=== PATIENT | male | born 1980 | race Caucasian/White ===

== ENCOUNTER 2018-01-20 10:32 | Inpatient (IN) | payer SELFPAY ==
[~2018-01-20] VITALS: Ht 170.2 cm; Wt 67.6 kg
[2018-01-20 10:42] LABS: BASOPHILS % (AUTO) 0.6 % (0.0-5.0); HEMATOCRIT 39.6 % (42-54); LYMPHOCYTES % (AUTO) 26.2 % (21.0-51.0); MEAN CORPUSCULAR HEMOGLOBIN 30.1 pg (27.0-33.0); MEAN CORPUSCULAR VOLUME 88.6 fL (79-99); MONOCYTES % (AUTO) 7.4 % (3.0-13.0); NEUTROPHILS % (AUTO) 60.8 % (40.0-77.0); NUCLEATED RED BLOOD CELLS 0.1 % (0.0-0.19); PLATELET COUNT (AUTO) 393 K/uL (130-400); RED BLOOD CELL COUNT(AUTO) 4.47 MIL/uL (4.50-6.20); RED CELL DISTRIBUTION WIDTH 13.8 % (11.0-15.5)
[2018-01-20 10:54] LABS: CREATININE 0.9 mg/dL (0.5-1.5); POTASSIUM 3.8 mmol/L (3.5-5.1)
[2018-01-20] MEDS ORDERED: KETOROLAC TROMETHAMINE 30MG/ML ONE (11:54)
[2018-01-20] MEDS ORDERED: CEFTRIAXONE SODIUM 1 GM ONE (13:19)
[2018-01-20] MEDS ORDERED: SODIUM CHLORIDE 0.9% 50 ML IV ONE (13:19)
[2018-01-20 13:43] LABS: AMPHET/METH SCREEN,URINE NEGATIVE (NEGATIVE); BARBITURATE SCREEN, URINE NEGATIVE (NEGATIVE); BENZODIAZEPINES SCREEN,URINE NEGATIVE (NEGATIVE); CANNABINOID SCREEN,URINE NEGATIVE (NEGATIVE); COCAINE SCREEN,URINE POSITIVE (NEGATIVE); OPIATE SCREEN,URINE NEGATIVE (NEGATIVE); PHENCYCLIDINE SCREEN,URINE NEGATIVE (NEGATIVE)
[2018-01-20 15:35] VITALS: BP 95/42
[2018-01-20] MEDS ORDERED: ONDANSETRON HCL 4 MG/2 ML VIAL IV PRN (17:30)
[2018-01-20] MEDS ORDERED: IBUPROFEN 600 MG TABLET PO PRN (17:30)
[2018-01-20] MEDS ORDERED: ACETAMINOPHEN 325 MG TAB PO PRN (17:30)
[2018-01-20] MEDS ORDERED: HYDRALAZINE HCL 20 MG/ML VIAL IV PRN (17:30)
[2018-01-20] MEDS ORDERED: MORPHINE SULFATE 2 MG/ML 1ML SYG IV PRN (17:30)
[2018-01-20] MEDS: CLINDAMYCIN 600 MG/D5% WATER 50 ML IV SCH (17:50)
[2018-01-20] MEDS ORDERED: MORPHINE SULFATE 4 MG/1ML SYG ONE (19:41)
[2018-01-20] MEDS: SODIUM CHLORIDE 0.9% 1000ML 1,000 ML IV SCH (19:47)
[2018-01-20 20:00] VITALS: BP 164/96
[2018-01-20] MEDS: FAMOTIDINE/PF 20 MG/2 ML VIAL IV SCH (21:33)
[2018-01-20] MEDS: DIAZEPAM 5 MG TABLET PO SCH (21:33)
[2018-01-20] MEDS: KETOROLAC TROMETHAMINE 30MG/ML IV SCH (21:33)
[2018-01-21] VITALS: BP 90/58
[2018-01-21] MEDS: CLINDAMYCIN 600 MG/D5% WATER 50 ML IV SCH ×3 (00:30→15:15)
[2018-01-21] MEDS: KETOROLAC TROMETHAMINE 30MG/ML IV SCH ×2 (06:22→14:11)
[2018-01-21] MEDS: SODIUM CHLORIDE 0.9% 1000ML 1,000 ML IV SCH (06:23)
[2018-01-21] MEDS: DIAZEPAM 5 MG TABLET PO SCH ×2 (06:23→14:11)
[2018-01-21 06:31] VITALS: BP 144/84
[2018-01-21 07:51] VITALS: BP 117/75
[2018-01-21] MEDS ORDERED: ENOXAPARIN SODIUM 40 MG/0.4 ML SYRINGE SQ SCH (09:00)
[2018-01-21] MEDS ORDERED: NICOTINE 14 MG/ 24 HR PATCH TD SCH (09:45)
[2018-01-21] MEDS ORDERED: CLIN300C9 PO (09:48)
[2018-01-21] MEDS ORDERED: IBUP-2077 PO (09:48)
[2018-01-21] MEDS: FAMOTIDINE/PF 20 MG/2 ML VIAL IV SCH (11:10)
[2018-01-21 12:00] VITALS: BP 120/71
[2018-01-21 15:19] VITALS: BP 121/72
== END 2018-01-21 18:10 | disposition home or self-care (01) | DRG 603 ==
LOC: EDH 10:32 → EDHIP 10:33 → 3CH 15:16
PROVIDERS: ADMIT Hospitalist; ATTEND Hospitalist
DX: L03.211 Cellulitis of face (principal); K02.9 Dental caries, unspecified; F14.90 Cocaine use, unspecified, uncomplicated; F31.9 Bipolar disorder, unspecified; F20.9 Schizophrenia, unspecified
CPT/HCPCS: 36415; 70486; 70490; 80048; 80305; 85025; 87040; J0696; J1650; J1885; J2270; J3490

== ENCOUNTER 2018-06-30 11:07 | Emergency (ER) | payer SELFPAY ==
[~2018-06-30 11:07] MED LIST: CLIN300C9 PO; IBUP-2077 PO
[2018-06-30] MEDS ORDERED: TETANUS/DIPHTHERIA TOXOID [ADULT] 0.5 ML VIAL IM ONE (11:51)
== END 2018-06-30 12:03 | disposition home or self-care (01) ==
LOC: EDH 11:07
DX: S61.214A Laceration without foreign body of right ring finger without damage to nail, initial encounter (principal); F31.9 Bipolar disorder, unspecified; F20.9 Schizophrenia, unspecified; Z72.0 Tobacco use; X78.1XXA Intentional self-harm by knife, initial encounter; Y93.89 Activity, other specified; Y92.89 Other specified places as the place of occurrence of the external cause; Y99.8 Other external cause status
CPT/HCPCS: 29130; 90471; 90714

== ENCOUNTER 2019-03-10 16:40 | Inpatient (IN) | payer OTHER ==
[~2019-03-10] VITALS: Ht 170.2 cm; Wt 61.2 kg
[2019-03-10 18:02] LABS: BASOPHILS % (AUTO) 0.9 % (0.0-5.0); EOSINOPHILS % (AUTO) 4.8 % (0.0-8.0); HEMATOCRIT 28.8 % (42-54); LYMPHOCYTES % (AUTO) 24.9 % (21.0-51.0); MEAN CORPUSCULAR HEMOGLOBIN 30.4 pg (27.0-33.0); MEAN CORPUSCULAR HGB CONC 34.6 g/dL (32.0-36.0); MEAN CORPUSCULAR VOLUME 87.9 fL (79-99); MONOCYTES % (AUTO) 12.9 % (3.0-13.0); NEUTROPHILS % (AUTO) 56.5 % (40.0-77.0); PLATELET COUNT (AUTO) 340 K/uL (130-400); RED BLOOD CELL COUNT(AUTO) 3.28 MIL/uL (4.50-6.20); WHITE BLOOD COUNT (AUTO) 11.7 K/uL (4.8-10.8)
[2019-03-10] MEDS ORDERED: TETANUS/DIPHTHERIA TOXOID [ADULT] 0.5 ML VIAL IM ONE (18:06)
[2019-03-10 18:17] LABS: INR 0.99 (0.85-1.15); PROTHROMBIN TIME 10.4 SEC (9.6-11.6)
[2019-03-10 18:18] LABS: APPEARANCE,URINE Clear (CLEAR); BILIRUBIN,URINE Negative (NEGATIVE); COLOR,URINE Yellow (YELLOW); GLUCOSE, URINE (UA) Negative (NEGATIVE); KETONES,URINE Negative (NEGATIVE); LEUKOCYTE ESTERASE ,URINE Negative (NEGATIVE); NITRATE,URINE Negative (NEGATIVE); OCCULT BLOOD,URINE Negative (NEGATIVE); PH,URINE 7.5 (5.0-8.0); PROTEIN,URINE Negative (NEGATIVE); UROBILINOGEN,URINE 0.2 mg/dL (0.2-1.0)
[2019-03-10] MEDS ORDERED: ZOSYN 3.375GM+NS 50ML 50 ML IV ONE (18:21)
[2019-03-10 18:33] LABS: ACETAMINOPHEN < 1 mcg/mL (10-29); ALCOHOL, BLOOD < 3 mg/dL (0-10); SALICYLATE < 2.8 mg/dL (2.8-20.0)
[2019-03-10 18:36] LABS: CREATININE 0.7 mg/dL (0.5-1.5); POTASSIUM 4.1 mmol/L (3.5-5.1)
[2019-03-10 18:51] LABS: ALBUMIN 2.9 g/dL (3.5-5.0); BILIRUBIN,TOTAL 0.3 mg/dL (0.2-1.0); PARTIAL THROMBOPLASTIN TIME 24.9 SEC (26.3-35.5); TOTAL PROTEIN, SERUM 6.3 g/dL (6.0-8.3)
[2019-03-10 18:59] LABS: MYOGLOBIN 49 ng/mL (10-92)
[2019-03-10 19:09] LABS: AMPHET/METH SCREEN,URINE NEGATIVE (NEGATIVE); BARBITURATE SCREEN, URINE NEGATIVE (NEGATIVE); BENZODIAZEPINES SCREEN,URINE POSITIVE (NEGATIVE); CANNABINOID SCREEN,URINE NEGATIVE (NEGATIVE); COCAINE SCREEN,URINE POSITIVE (NEGATIVE); OPIATE SCREEN,URINE NEGATIVE (NEGATIVE); PHENCYCLIDINE SCREEN,URINE NEGATIVE (NEGATIVE)
[2019-03-10] MEDS ORDERED: VANCOMYCIN 1GM+NS 250ML 250 ML IV ONE (19:13)
[2019-03-10] MEDS ORDERED: ACETAMINOPHEN EXTRA STRENGTH 500 MG TABLET ONE (19:44)
[2019-03-10] MEDS ORDERED: SODIUM CHLORIDE 0.9% 1000ML 1,000 ML IV ONE (19:44)
[2019-03-10] MEDS ORDERED: FAMOTIDINE/PF 20 MG/2 ML VIAL IV ONE (20:53)
[2019-03-10 22:10] VITALS: BP 115/66
[2019-03-11] MEDS: SODIUM CHLORIDE 0.9% 1000ML 1,000 ML IV SCH ×3 (00:01→20:33)
[2019-03-11] MEDS: FAMOTIDINE/PF 20 MG/2 ML VIAL IV SCH ×3 (00:01→20:33)
[2019-03-11] MEDS ORDERED: ZOSYN 3.375GM+NS 50ML 50 ML IV ONE (00:47)
[2019-03-11] MEDS: ZOSYN 3.375GM+NS 50ML 50 ML IV SCH ×3 (01:11→17:18)
[2019-03-11 04:35] VITALS: BP 119/73
[2019-03-11 05:25] LABS: BASOPHILS % (AUTO) 0.8 % (0.0-5.0); EOSINOPHILS % (AUTO) 6.3 % (0.0-8.0); HEMATOCRIT 28.6 % (42-54); MEAN CORPUSCULAR HEMOGLOBIN 30.3 pg (27.0-33.0); MEAN CORPUSCULAR HGB CONC 34.6 g/dL (32.0-36.0); MEAN CORPUSCULAR VOLUME 87.6 fL (79-99); MONOCYTES % (AUTO) 11.1 % (3.0-13.0); NEUTROPHILS % (AUTO) 54.8 % (40.0-77.0); PLATELET COUNT (AUTO) 366 K/uL (130-400); RED BLOOD CELL COUNT(AUTO) 3.27 MIL/uL (4.50-6.20); RED CELL DISTRIBUTION WIDTH 14.1 % (11.0-15.5); WHITE BLOOD COUNT (AUTO) 9.7 K/uL (4.8-10.8)
[2019-03-11 06:24] LABS: ALBUMIN 2.5 g/dL (3.5-5.0); BILIRUBIN,TOTAL 0.3 mg/dL (0.2-1.0); CREATININE 0.9 mg/dL (0.5-1.5); MAGNESIUM 1.5 mg/dL (1.80-2.40); POTASSIUM 3.3 mmol/L (3.5-5.1); TOTAL PROTEIN, SERUM 6.4 g/dL (6.0-8.3)
[2019-03-11] MEDS ORDERED: POTASSIUM CHLORIDE 20 MEQ ERTAB PO ONE (06:43)
[2019-03-11] MEDS ORDERED: MAGNESIUM 2GM PREMIX 50ML 50 ML IV PRN ×2 (06:45→09:00)
[2019-03-11] MEDS ORDERED: POTASSIUM CHLORIDE 10% ELIXIR 20 MEQ/15 ML UDCUP PO PRN ×2 (06:45→09:00)
[2019-03-11] MEDS ORDERED: POTASSIUM CHLORIDE 20MEQ/100ML 100 ML IV PRN ×2 (06:45→09:00)
[2019-03-11] MEDS ORDERED: LIDOCAINE HCL-MPF 1% 2ML VIAL IV PRN ×2 (06:45→09:00)
[2019-03-11 08:00] VITALS: BP 125/73
[2019-03-11] MEDS ORDERED: LORAZEPAM 2 MG/ML 1 ML VIAL IVP PRN (08:45)
[2019-03-11] MEDS ORDERED: PHARMACY COMMUNICATION MISC PRN (08:45)
[2019-03-11] MEDS ORDERED: CHLORDIAZEPOXIDE HCL 25 MG CAP PO PRN (08:45)
[2019-03-11] MEDS: LORAZEPAM 2 MG/ML 1 ML VIAL IVP PRN ×2 (08:45→17:19)
[2019-03-11] MEDS ORDERED: POTASSIUM CHLORIDE 20 MEQ ERTAB PO PRN (09:00)
--- NOTE | 2019-03-11 10:00 | NUR ---
Rec'd order for 1:1 sitter; speaking unit assembler Rafaela Espitia assigned until relief can be obtained. Also rec'd order for SOC teleneuro consult, however it is currently in use in ER. Notified ordering practitioner TERESA Whiting; she stated ok to wait until available.
[2019-03-11] MEDS: THIAMINE HCL 100 MG, FOLIC ACID 1 MG, M.V.I. IV [ADULT] 10 ML in SODIUM CHLORIDE 0.9% 1... IV SCH (10:39)
[2019-03-11] MEDS: ENOXAPARIN SODIUM 30 MG/0.3 ML SQ SCH (10:46)
[2019-03-11] MEDS: IPRATROPIUM/ALBUTEROL SULFATE 3 ML SOLUTION IH SCH ×3 (11:16→23:02)
--- NOTE | 2019-03-11 11:30 | NUR ---
Tele SOC cart placed in room. Cosult request entered in computer. Nurse Neyda notified to expect call back.
[2019-03-11 12:00] VITALS: BP 144/60
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
[2019-03-11] MEDS: POTASSIUM CHLORIDE 20 MEQ ERTAB PO PRN ×2 (12:14→16:42)
--- NOTE | 2019-03-11 12:20 | NUR ---
SOC CONSULT STARTED BY DR. RYAN SANTIAGO.
--- NOTE | 2019-03-11 12:50 | NUR ---
CALL RECEIVED FROM DR. RYAN SANTIAGO REGARDING SOC RECOMMENDATIONS. RECOMMENDS MRI OF HEAD W/WO CONTRAST. IF MRI NEGATIVE, STATED PATIENT'S JERKY MOVEMENTS ARE FROM DRUG USAGE NOT RELATED TO STROKE OR SEIZURES. REPORT GIVEN TO TERESA JACQUES.
[2019-03-11] MEDS ORDERED: GADODIAMIDE 10 MMOL/20 ML VIAL IV ONE (13:20)
[2019-03-11 16:29] VITALS: BP 113/71
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
[2019-03-11 20:02] VITALS: BP 135/66
[2019-03-11] MEDS: CHLORDIAZEPOXIDE HCL 25 MG CAP PO SCH (20:33)
[2019-03-11 23:32] VITALS: BP 111/64
[2019-03-12] MEDS: ZOSYN 3.375GM+NS 50ML 50 ML IV SCH ×3 (01:59→17:42)
[2019-03-12] MEDS: SODIUM CHLORIDE 0.9% 1000ML 1,000 ML IV SCH ×3 (02:00→21:11)
[2019-03-12] MEDS: LORAZEPAM 2 MG/ML 1 ML VIAL IVP PRN ×2 (02:11→10:57)
[2019-03-12 03:40] VITALS: BP 106/69
[2019-03-12 05:07] LABS: BASOPHILS % (AUTO) 0.8 % (0.0-5.0); EOSINOPHILS % (AUTO) 5.5 % (0.0-8.0); HEMATOCRIT 27.4 % (42-54); LYMPHOCYTES % (AUTO) 27.7 % (21.0-51.0); MEAN CORPUSCULAR HGB CONC 35.1 g/dL (32.0-36.0); MEAN CORPUSCULAR VOLUME 88.2 fL (79-99); MONOCYTES % (AUTO) 10.1 % (3.0-13.0); NEUTROPHILS % (AUTO) 55.9 % (40.0-77.0); PLATELET COUNT (AUTO) 397 K/uL (130-400); RED BLOOD CELL COUNT(AUTO) 3.11 MIL/uL (4.50-6.20); WHITE BLOOD COUNT (AUTO) 9.9 K/uL (4.8-10.8)
[2019-03-12 05:22] LABS: ALBUMIN 2.5 g/dL (3.5-5.0); BILIRUBIN,TOTAL 0.3 mg/dL (0.2-1.0); CREATININE 0.7 mg/dL (0.5-1.5); TOTAL PROTEIN, SERUM 6.3 g/dL (6.0-8.3)
[2019-03-12] MEDS: IPRATROPIUM/ALBUTEROL SULFATE 3 ML SOLUTION IH SCH ×4 (06:13→22:59)
[2019-03-12 08:00] VITALS: BP 108/74
[2019-03-12] MEDS: THIAMINE HCL 100 MG, FOLIC ACID 1 MG, M.V.I. IV [ADULT] 10 ML in SODIUM CHLORIDE 0.9% 1... IV SCH (08:35)
[2019-03-12] MEDS: CHLORDIAZEPOXIDE HCL 25 MG CAP PO SCH ×3 (08:43→22:15)
[2019-03-12] MEDS: FAMOTIDINE/PF 20 MG/2 ML VIAL IV SCH ×2 (08:43→22:15)
[2019-03-12] MEDS: ENOXAPARIN SODIUM 30 MG/0.3 ML SQ SCH (08:44)
[2019-03-12 12:00] VITALS: BP 112/75
[2019-03-12 16:00] VITALS: BP 120/76
[2019-03-12 19:00] VITALS: BP 111/67
[2019-03-13] VITALS (7 sets, daily range): BP systolic 101–122; BP diastolic 56–65
[2019-03-13] MEDS: ZOSYN 3.375GM+NS 50ML 50 ML IV SCH ×3 (01:53→19:29)
[2019-03-13] MEDS: SODIUM CHLORIDE 0.9% 1000ML 1,000 ML IV SCH ×2 (02:09→18:31)
--- NOTE | 2019-03-13 04:46 | NUR ---
SLEPT Pt had an uneventful night.No seizures no tremors noted.
[2019-03-13 05:55] LABS: BASOPHILS % (AUTO) 0.9 % (0.0-5.0); EOSINOPHILS % (AUTO) 4.3 % (0.0-8.0); HEMATOCRIT 27.2 % (42-54); LYMPHOCYTES % (AUTO) 24.1 % (21.0-51.0); MEAN CORPUSCULAR HEMOGLOBIN 30.9 pg (27.0-33.0); MEAN CORPUSCULAR HGB CONC 34.8 g/dL (32.0-36.0); MEAN CORPUSCULAR VOLUME 88.7 fL (79-99); MONOCYTES % (AUTO) 7.3 % (3.0-13.0); NEUTROPHILS % (AUTO) 63.4 % (40.0-77.0); PLATELET COUNT (AUTO) 514 K/uL (130-400); RED BLOOD CELL COUNT(AUTO) 3.07 MIL/uL (4.50-6.20); RED CELL DISTRIBUTION WIDTH 14.3 % (11.0-15.5); WHITE BLOOD COUNT (AUTO) 9.9 K/uL (4.8-10.8)
[2019-03-13 06:12] LABS: ALBUMIN 2.5 g/dL (3.5-5.0); BILIRUBIN,TOTAL 0.2 mg/dL (0.2-1.0); CREATININE 0.8 mg/dL (0.5-1.5); POTASSIUM 3.8 mmol/L (3.5-5.1); TOTAL PROTEIN, SERUM 6.2 g/dL (6.0-8.3)
[2019-03-13] MEDS: IPRATROPIUM/ALBUTEROL SULFATE 3 ML SOLUTION IH SCH ×4 (06:26→23:10)
--- NOTE | 2019-03-13 08:10 | NUR ---
Pt yelling, using obscene language towards staff, as per 1:1 sitter she was spoon-feeding him due to involuntary tremors and he screamed at her to get out of the room, she said that the pt got very upset because he heard the bedside report given as bedside report by the ongoing nurse to the incoming nurse, was called. Talked to pt and he said that he feels that he was being mock and that one believe him and while he was talking he kept having tremors, instructed him that i will give him a medication to help him relax, security came into the room and recommended to change the 1:1 sitter and wrote a report.
[2019-03-13] MEDS: LORAZEPAM 2 MG/ML 1 ML VIAL IVP PRN ×3 (08:11→23:12)
[2019-03-13] MEDS: ENOXAPARIN SODIUM 30 MG/0.3 ML SQ SCH (09:25)
[2019-03-13] MEDS: FAMOTIDINE/PF 20 MG/2 ML VIAL IV SCH ×2 (09:25→20:38)
[2019-03-13] MEDS: CHLORDIAZEPOXIDE HCL 25 MG CAP PO SCH ×3 (09:25→20:38)
[2019-03-13] MEDS: THIAMINE HCL 100 MG, FOLIC ACID 1 MG, M.V.I. IV [ADULT] 10 ML in SODIUM CHLORIDE 0.9% 1... IV SCH (12:27)
--- NOTE | 2019-03-13 15:00 | NUR ---
SPOKE TO PT RE: DISCHARGE PLANS PT YELLING AND SCREAMING THAT HE WANTS OUT. DISCUSSED HIS DISCHARGE, ADVISED PT THAT HE CANNOT Walk ALONE YET, BUT WHEN HE CAN, HE IS WELCOME TO LEAVE AMA- PT STATES THAT IS EXACTLY WHAT HE IS GOING TO DO ADVISED PT THAT HE IS GETTING IMPORTANT NUTRITION RIGHT NOW AND HE NEEDS TO BE PATIENT Pt asked, what if i never can walk? CM advised pt then we have to look for a living situation for you- placement?
[2019-03-14] VITALS (11 sets, daily range): BP systolic 93–127; BP diastolic 47–82
[2019-03-14] MEDS: ZOSYN 3.375GM+NS 50ML 50 ML IV SCH ×4 (02:44→20:15)
[2019-03-14] MEDS: SODIUM CHLORIDE 0.9% 1000ML 1,000 ML IV SCH ×3 (03:11→23:11)
--- NOTE | 2019-03-14 05:01 | NUR ---
Patient transferred from 315 to [phone]. Patient is alert and no distress noted. Will monitor closely
[2019-03-14 05:04] LABS: BASOPHILS % (AUTO) 0.9 % (0.0-5.0); EOSINOPHILS % (AUTO) 3.5 % (0.0-8.0); HEMATOCRIT 26.7 % (42-54); LYMPHOCYTES % (AUTO) 23.2 % (21.0-51.0); MEAN CORPUSCULAR HEMOGLOBIN 30.9 pg (27.0-33.0); MEAN CORPUSCULAR HGB CONC 34.5 g/dL (32.0-36.0); MEAN CORPUSCULAR VOLUME 89.6 fL (79-99); MONOCYTES % (AUTO) 5.8 % (3.0-13.0); NEUTROPHILS % (AUTO) 66.6 % (40.0-77.0); PLATELET COUNT (AUTO) 572 K/uL (130-400); RED BLOOD CELL COUNT(AUTO) 2.98 MIL/uL (4.50-6.20); RED CELL DISTRIBUTION WIDTH 14.4 % (11.0-15.5); WHITE BLOOD COUNT (AUTO) 10.4 K/uL (4.8-10.8)
[2019-03-14 05:23] LABS: ALBUMIN 2.6 g/dL (3.5-5.0); BILIRUBIN,TOTAL 0.2 mg/dL (0.2-1.0); CREATININE 0.8 mg/dL (0.5-1.5); POTASSIUM 3.8 mmol/L (3.5-5.1); TOTAL PROTEIN, SERUM 6.4 g/dL (6.0-8.3)
[2019-03-14] MEDS: IPRATROPIUM/ALBUTEROL SULFATE 3 ML SOLUTION IH SCH ×4 (06:21→23:17)
[2019-03-14] MEDS: CHLORDIAZEPOXIDE HCL 25 MG CAP PO SCH ×3 (09:00→20:16)
[2019-03-14] MEDS: ENOXAPARIN SODIUM 30 MG/0.3 ML SQ SCH (09:00)
[2019-03-14] MEDS: FAMOTIDINE/PF 20 MG/2 ML VIAL IV SCH ×2 (09:00→20:16)
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
--- NOTE | 2019-03-14 10:15 | NUR ---
PATIENT IS AGITATED STATING HE WANTS TO LEAVE AMA. CHARGE NURSE RO FERNANDEZ AT BEDSIDE. PT ADVISED UNABLE TO AMBULATE ON HIS OWN, PT INSISTING TO LEAVE. PT DEMANDING IV TO BE REMOVED. IV REMOVED BY CHARGE NURSE. PATIENT SITTING UP IN BED TO SIGN AMA FORM. PT APPEARED TO SLUMP OVER ON BEDRAIL STATING "I DONT'T HAVE ENERGY" PATIENT BEGAN TO HAVE JERKY MOVEMENTS. DIRECTOR FRANCE AT BEDSIDE. RAPID RESPONSE CALLED AT THIS TIME.
--- NOTE | 2019-03-14 10:25 | NUR ---
IRASEMA SCRUGGSOFFICE TECHNICIAN AT BEDSIDE. NEW ORDERS RECEIVED.
[2019-03-14 10:33] LABS: HEMATOCRIT 27.9 % (42-54); MEAN CORPUSCULAR HEMOGLOBIN 30.4 pg (27.0-33.0); MEAN CORPUSCULAR HGB CONC 34.2 g/dL (32.0-36.0); PLATELET COUNT (AUTO) 616 K/uL (130-400); RED BLOOD CELL COUNT(AUTO) 3.13 MIL/uL (4.50-6.20); RED CELL DISTRIBUTION WIDTH 14.2 % (11.0-15.5)
[2019-03-14 10:41] LABS: CREATININE 0.8 mg/dL (0.5-1.5); POTASSIUM 4.3 mmol/L (3.5-5.1)
[2019-03-14] MEDS ORDERED: LORAZEPAM 2 MG/ML 1 ML VIAL IVP PRN (10:45)
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
[2019-03-14] MEDS ORDERED: LORAZEPAM 2 MG/ML 1 ML VIAL IVP ONE (12:10)
--- NOTE | 2019-03-14 17:02 | NUR ---
Nutrition Follow-up: Pt. on GI Soft [place] diet, snacks TID with good p.o.intake, as per pt. Labs reviewed(Alb 2.6). LBM: 03/12/19. SR-16, elastic. Recommendations: 1) Continue current diet. 2) Rec. Ensure supp. QD with B'fast meal. 3) Continue to monitor pt's nutritional status. 4) Consult RD as nutrition concerns arise. Addendum: 03/14/19 at [address] Amended: Links added.
--- NOTE | 2019-03-14 17:10 | NUR ---
DR. LOMBARDI CALLED AND UPADATED ON PATIENT'S STATUS. ATIVAN NOT TO BE GIVEN. CONTINUE WITH LIBRIUM TID
--- NOTE | 2019-03-14 17:15 | NUR ---
PATIENT BEGAN TO BECOME AGITATED STATES HE WANTS TO LEAVE. HE BEGAN YELLING AT [employer]OND DIE POLISHER DAYSI. CODE MAN ANASTASIA CALLED AT THIS TIME.
--- NOTE | 2019-03-14 17:30 | NUR ---
IRASEMA SCRUGGS WATERPROOF BAG CUTTING MACHINE OPERATOR NOTIFIED ON PATIENT'S STATUS. NEW ORDERS RECEIVED FOR GEODON 10MG IM Q4 HOURS PRN.
[2019-03-15] MEDS: ZOSYN 3.375GM+NS 50ML 50 ML IV SCH ×3 (03:53→17:19)
[2019-03-15 04:01] VITALS: BP 116/70
[2019-03-15 05:27] LABS: BASOPHILS % (AUTO) 1.3 % (0.0-5.0); EOSINOPHILS % (AUTO) 4.1 % (0.0-8.0); HEMATOCRIT 27.6 % (42-54); LYMPHOCYTES % (AUTO) 26.1 % (21.0-51.0); MEAN CORPUSCULAR HEMOGLOBIN 31.1 pg (27.0-33.0); MEAN CORPUSCULAR HGB CONC 34.8 g/dL (32.0-36.0); MEAN CORPUSCULAR VOLUME 89.3 fL (79-99); MONOCYTES % (AUTO) 6.6 % (3.0-13.0); NEUTROPHILS % (AUTO) 61.9 % (40.0-77.0); PLATELET COUNT (AUTO) 680 K/uL (130-400); RED BLOOD CELL COUNT(AUTO) 3.08 MIL/uL (4.50-6.20); RED CELL DISTRIBUTION WIDTH 14.4 % (11.0-15.5); WHITE BLOOD COUNT (AUTO) 10.9 K/uL (4.8-10.8)
[2019-03-15 05:38] LABS: CREATININE 0.8 mg/dL (0.5-1.5); POTASSIUM 3.8 mmol/L (3.5-5.1)
[2019-03-15] MEDS: IPRATROPIUM/ALBUTEROL SULFATE 3 ML SOLUTION IH SCH ×4 (05:59→23:09)
[2019-03-15 08:00] VITALS: BP 111/72
[2019-03-15] MEDS: FAMOTIDINE/PF 20 MG/2 ML VIAL IV SCH ×2 (09:27→20:35)
[2019-03-15] MEDS: CHLORDIAZEPOXIDE HCL 25 MG CAP PO SCH (09:27)
[2019-03-15] MEDS: ENOXAPARIN SODIUM 30 MG/0.3 ML SQ SCH (09:28)
[2019-03-15] MEDS: SODIUM CHLORIDE 0.9% 1000ML 1,000 ML IV SCH ×2 (09:29→19:11)
[2019-03-15] MEDS: CHLORDIAZEPOXIDE HCL 5 MG CAPSULE PO SCH ×2 (15:36→20:35)
[2019-03-15] MEDS: CHLORDIAZEPOXIDE HCL 10 MG CAPSULE PO SCH ×2 (15:36→20:35)
[2019-03-15 20:00] VITALS: BP 113/61
[2019-03-16] VITALS (7 sets, daily range): BP systolic 93–129; BP diastolic 50–67
[2019-03-16] MEDS: ZOSYN 3.375GM+NS 50ML 50 ML IV SCH ×3 (02:23→18:15)
[2019-03-16 03:56] LABS: BASOPHILS % (AUTO) 1.1 % (0.0-5.0); HEMATOCRIT 27.8 % (42-54); MEAN CORPUSCULAR HEMOGLOBIN 31.2 pg (27.0-33.0); MEAN CORPUSCULAR HGB CONC 34.8 g/dL (32.0-36.0); MEAN CORPUSCULAR VOLUME 89.6 fL (79-99); MONOCYTES % (AUTO) 6.7 % (3.0-13.0); NEUTROPHILS % (AUTO) 61.2 % (40.0-77.0); PLATELET COUNT (AUTO) 695 K/uL (130-400); RED CELL DISTRIBUTION WIDTH 14.1 % (11.0-15.5); WHITE BLOOD COUNT (AUTO) 9.6 K/uL (4.8-10.8)
[2019-03-16 04:04] LABS: CREATININE 0.8 mg/dL (0.5-1.5); POTASSIUM 3.6 mmol/L (3.5-5.1)
[2019-03-16] MEDS: SODIUM CHLORIDE 0.9% 1000ML 1,000 ML IV SCH ×2 (05:11→15:11)
[2019-03-16] MEDS: IPRATROPIUM/ALBUTEROL SULFATE 3 ML SOLUTION IH SCH ×4 (06:13→23:09)
[2019-03-16] MEDS: CHLORDIAZEPOXIDE HCL 10 MG CAPSULE PO SCH ×3 (08:48→19:51)
[2019-03-16] MEDS: CHLORDIAZEPOXIDE HCL 5 MG CAPSULE PO SCH ×3 (08:49→19:51)
[2019-03-16] MEDS: ENOXAPARIN SODIUM 30 MG/0.3 ML SQ SCH (08:49)
[2019-03-16] MEDS: FAMOTIDINE/PF 20 MG/2 ML VIAL IV SCH ×2 (08:49→19:51)
--- NOTE | 2019-03-16 10:15 | NUR ---
PT NOTE: OF 03/15/19 BEDSIDE EX'S ONLY PER DR. BAXTER REQUEST. PATIENT UNSAFE FOR TRANSFER OOB TO CHAIR. Addendum: 03/16/19 at 1016 by CAPRI KERR PT Amended: Links added.
[2019-03-16] MEDS: ZIPRASIDONE MESYLATE 20 MG/VIAL IM PRN (10:31)
[2019-03-17] MEDS: SODIUM CHLORIDE 0.9% 1000ML 1,000 ML IV SCH ×2 (00:47→11:36)
[2019-03-17] MEDS: ZOSYN 3.375GM+NS 50ML 50 ML IV SCH ×3 (02:02→19:58)
[2019-03-17 03:36] VITALS: BP 103/64
[2019-03-17 04:42] LABS: BASOPHILS % (AUTO) 1.2 % (0.0-5.0); EOSINOPHILS % (AUTO) 4.8 % (0.0-8.0); HEMATOCRIT 27.6 % (42-54); LYMPHOCYTES % (AUTO) 29.3 % (21.0-51.0); MEAN CORPUSCULAR HEMOGLOBIN 31.2 pg (27.0-33.0); MEAN CORPUSCULAR HGB CONC 34.5 g/dL (32.0-36.0); MEAN CORPUSCULAR VOLUME 90.3 fL (79-99); MONOCYTES % (AUTO) 7.8 % (3.0-13.0); NEUTROPHILS % (AUTO) 56.9 % (40.0-77.0); RED BLOOD CELL COUNT(AUTO) 3.06 MIL/uL (4.50-6.20); RED CELL DISTRIBUTION WIDTH 14.8 % (11.0-15.5); WHITE BLOOD COUNT (AUTO) 9.8 K/uL (4.8-10.8)
[2019-03-17 04:51] LABS: PLATELET COUNT (AUTO) 751 K/uL (130-400)
--- NOTE | 2019-03-17 05:10 | NUR ---
PT BEHAVIOR PT BECAME AGITATED PULLED OFF TELEMETRY STATING "TAKE THIS SHIT OFF ME", REFUSING TO BE CONNECTED TO IV INFUSION STATED "I DON'T NEED THIS SHIT" STATED IS FRUSTRATED AND AGITATED BECAUSE THE ROOM IS "HOT". ROOM TEMPERATURE WAS ADJUSTED AT THIS TIME TO MEET PT'S PREFERENCE. PT BEHAVIOR CALMED DOWN.
[2019-03-17 05:16] LABS: CREATININE 1.1 mg/dL (0.5-1.5); POTASSIUM 3.9 mmol/L (3.5-5.1)
[2019-03-17] MEDS: IPRATROPIUM/ALBUTEROL SULFATE 3 ML SOLUTION IH SCH ×4 (05:20→23:14)
[2019-03-17 08:00] VITALS: BP 102/62
[2019-03-17] MEDS: CHLORDIAZEPOXIDE HCL 10 MG CAPSULE PO SCH ×3 (08:14→19:58)
[2019-03-17] MEDS: CHLORDIAZEPOXIDE HCL 5 MG CAPSULE PO SCH ×3 (08:14→19:58)
[2019-03-17] MEDS: FAMOTIDINE/PF 20 MG/2 ML VIAL IV SCH ×2 (08:14→19:58)
[2019-03-17] MEDS: ENOXAPARIN SODIUM 30 MG/0.3 ML SQ SCH (08:15)
--- NOTE | 2019-03-17 09:54 | NUR ---
AMA PATIENT STATES HE WANTS TO LEAVE AM. STATES HIS FRIEND RJ JIMENEZ IS COMING TO THE HOSPITAL TO PICK HIM UP. I CALLED PATIENT'S FATHER CHARLA KELLER AT [phone]. VOICEMAIL LEFT. WAITING RESEARCH PHLEBOTOMIST BACK.
--- NOTE | 2019-03-17 10:01 | NUR ---
CHARLA KELLER CALLED BACK. HE STATES THAT HE KNOWS EVELIN JIMENEZ A CLOSE FRIEND OF HIS SON. ALSO STATES HE WILL TRY TO CONVINCE HIS SON TO STAY IN THE HOSPITAL BUT AT THIS TIME HE FEELS HELPLESS BECAUSE HE'S BEEN TRYING TO HELP HIM SO MANY TIMES BEFORE AND HIS SON HAS DECLINED ALL HELP. CHARLA KRISHNA VERBALIZES HE WANTS HIS SON TO GET BETTER BUT HE UNDERSTANDS THAT MARELY KELLER IS AN ADULT NOW AND HE CANNOT OBLIGATE HIM TO DO SOMETHING HE DOES NOT WANTS TO DO. HE IS AWARE OF HIS SON'S ADDICTIONS AND MENTAL HEALTH PROBLEMS AND WISHES HIS SON WOULD LISTEN TO THE DOCTORS RECOMMENDATIONS BECAUSE THERE IS NOTHING ELSE HE CAN DO FOR HIM AT THIS TIME.
[2019-03-17] MEDS ORDERED: DiphenhydrAMINE HCL 50 MG/ML VIAL IV PRN (11:00)
[2019-03-17] MEDS: ZIPRASIDONE MESYLATE 20 MG/VIAL IM PRN (11:26)
--- NOTE | 2019-03-17 13:20 | NUR ---
Patient decided not go AMA after all because when he tried to stand up by himself he realized that he couldn't even walk. Allowed patient to try to walk while being right next to him in case he had a fall. Patient is now able to understand his limitations and decided he is not going to leave. His "friend" Nic Judd never called back or came to visit to the hospital.
--- NOTE | 2019-03-17 14:00 | NUR ---
cm note discussed case with NUTRITION WORKER alan stoner, regarding case, states pt not medically clear yet, will re eval in am.
[2019-03-17 15:45] VITALS: BP 104/68
[2019-03-17 20:00] VITALS: BP 108/67
[2019-03-18] VITALS: BP 106/56
[2019-03-18 04:00] VITALS: BP 103/67
[2019-03-18] MEDS: ZOSYN 3.375GM+NS 50ML 50 ML IV SCH ×2 (05:30→10:44)
--- NOTE | 2019-03-18 05:35 | NUR ---
Patient with sudden outburst, yelling and verbally abusive towards staff, states he wants to leave, but md will not let him leave. He realizes he is unable to walk independently, states he only needs w/c or crutches to walk out of here. Encouraged to speak to md when he rounds later this am, but becomes agitated and again starts using foul language saying no one wants to help him get out of here. preparation supervisor canning called patient's father Darin Plunkett, left message, pending to call back.
[2019-03-18] MEDS ORDERED: LORAZEPAM 2 MG/ML 1 ML VIAL ONE (05:51)
--- NOTE | 2019-03-18 05:51 | NUR ---
Patient continues with yelling outbursts, using foul language towards staff and throwing items inside the room. Security had been previously been called for assistance due to patient's behavior. While security was at patient's bedside, patient made comment he wished he had been left in the cerda. Patient acknowledged to Olga Gordon LVN he had made the comment to social security specialist, but did not mean he wanted to kill himself. Ian Cardenas was called and obtained order for Ativan 1mg IV x1, order carried forward. Will continue to monitor.
[2019-03-18 05:52] LABS: CREATININE 0.9 mg/dL (0.5-1.5); POTASSIUM 4.6 mmol/L (3.5-5.1)
[2019-03-18] MEDS ORDERED: LORAZEPAM 2 MG/ML 1 ML VIAL IVP SCH (06:00)
[2019-03-18] MEDS: IPRATROPIUM/ALBUTEROL SULFATE 3 ML SOLUTION IH SCH ×3 (06:09→18:00)
[2019-03-18 08:00] VITALS: BP 104/62
[2019-03-18] MEDS: ENOXAPARIN SODIUM 30 MG/0.3 ML SQ SCH (10:44)
[2019-03-18] MEDS: FAMOTIDINE/PF 20 MG/2 ML VIAL IV SCH (10:44)
[2019-03-18] MEDS: CHLORDIAZEPOXIDE HCL 10 MG CAPSULE PO SCH ×2 (11:00→14:23)
[2019-03-18] MEDS: CHLORDIAZEPOXIDE HCL 5 MG CAPSULE PO SCH ×2 (11:00→14:23)
[2019-03-18 12:00] VITALS: BP 113/67
[2019-03-18] MEDS ORDERED: LORAZEPAM 2 MG/ML 1 ML VIAL IVP PRN (13:15)
--- NOTE | 2019-03-18 14:35 | NUR ---
Notified patient of recommendation to stay as still showing weakness during physical therapy per Dr. Chery's assessment and recommendation from PT. Patient became agitated, angry stating PT staff lied to Dr. Chery and that he is not weak. Educated patient on need to provide a safe environment and staff is working towards best interest. Patient requested to talk with Dr. Chery and stated he wanted to leave AMA. Notified Dr. Chery of request and she will make another round to see patient.
--- NOTE | 2019-03-18 14:38 | NUR ---
1 mg IV Ativan administered per order for anxiety and agitation. Patient notified that Dr. Chery was called and she will be coming by to speak with him. Patient standing trying to remove personal items from closet. Patient instructed to prevent fall to lay back in bed. Assisted back to bed, knees buckled as preparing to mount bed. Patient reminded of lower extremity weakness and patient states, "I just don't like being lied to, they told me I wasn't weak anymore. I wanna go home." Educated that patient is not physically stable to walk if he chooses to leave A.
--- NOTE | 2019-03-18 15:12 | NUR ---
Called pharmacy to stock [employer] with Cece.
[2019-03-18 16:00] VITALS: BP 112/75
--- NOTE | 2019-03-18 16:30 | NUR ---
Called Dr. Chery to notify of patient requesting to leave as states he feels able to ambulate. Dr. Chery specified [facility] Screening can be performed once available.
--- NOTE | 2019-03-18 18:13 | NUR ---
Patient state he was leaving against medical advice. Notified patient of safety concerns if leaving without medical clearance and asked to stay for screening by [facility]. Patient refused to wait for screening. Dr. Chery, [employer] Blasting Claudia and Clinical Care Connector Freida Diana notified. AMA form signed and patient left hospital. Patient's father Darin Plunkett notified of patient's exit.
== END 2019-03-18 18:25 | disposition left against medical advice (07) | DRG 194 ==
LOC: EDH 16:40 → EDHIP 16:42 → UNDOADMIN 19:11 → EDHIP 19:11 → 3BH 21:37 → EDHIP 21:37 → 3CH 03-12 15:30 → 4CH 03-14 04:38 → 3CH 03-17 17:36
PROVIDERS: ADMIT Internal Medicine; ATTEND Internal Medicine
PROC: 3E0234Z Introduction of Serum, Toxoid and Vaccine into Muscle, Percutaneous Approach (ICD-10-PCS; principal; 2019-03-10)
DX: J18.9 Pneumonia, unspecified organism (principal); R64 Cachexia; E44.0 Moderate protein-calorie malnutrition; M25.562 Pain in left knee; F17.210 Nicotine dependence, cigarettes, uncomplicated; F20.9 Schizophrenia, unspecified; F31.9 Bipolar disorder, unspecified; F41.9 Anxiety disorder, unspecified; F60.2 Antisocial personality disorder; F13.10 Sedative, hypnotic or anxiolytic abuse, uncomplicated; W18.30XA Fall on same level, unspecified, initial encounter; F14.10 Cocaine abuse, uncomplicated; Z53.29 Procedure and treatment not carried out because of patient's decision for other reasons; Z86.74 Personal history of sudden cardiac arrest; Y93.89 Activity, other specified; Y92.009 Unspecified place in unspecified non-institutional (private) residence as the place of occurrence of the external cause; Y99.8 Other external cause status; Z23 Encounter for immunization; Z68.21 Body mass index [BMI] 21.0-21.9, adult
CPT/HCPCS: 36415; 70450; 70553; 71045; 72125; 73562; 80048; 80053; 80305; 81003; 82550; 82607; 82746; 82948; 83605; 83735; 83874; 84484; 85025; 85027; 85610; 85730; 87040; 90714; 93005; 94640; 94664; 97039; 99291; A9579; G0378; G0480; G0481; J1650; J2060; J2543; J3370; J3411; J3475; J3490; J7030

== ENCOUNTER 2019-03-20 12:26 | Emergency (ER) | payer OTHER ==
[2019-03-20] MEDS ORDERED: TETANUS/DIPHTHERIA TOXOID [ADULT] 0.5 ML VIAL IM ONE (13:00)
== END 2019-03-20 14:02 | disposition left against medical advice (07) ==
LOC: EDH 12:26
DX: S00.01XA Abrasion of scalp, initial encounter (principal); F31.9 Bipolar disorder, unspecified; F20.9 Schizophrenia, unspecified; Z72.0 Tobacco use; W05.0XXA Fall from non-moving wheelchair, initial encounter; Y93.89 Activity, other specified; Y92.89 Other specified places as the place of occurrence of the external cause; Y99.8 Other external cause status
CPT/HCPCS: 90471; 90714

== ENCOUNTER 2019-06-21 22:41 | Emergency (ER) | payer OTHER ==
[2019-06-22] MEDS ORDERED: LEVETIRACETAM 500 MG TABLET PO ONE (00:31)
== END 2019-06-22 00:40 | disposition home or self-care (01) ==
LOC: EDH 22:41
DX: Z76.0 Encounter for issue of repeat prescription (principal); F31.9 Bipolar disorder, unspecified

== ENCOUNTER 2020-03-23 02:14 | Emergency (ER) | payer OTHER ==
[2020-03-23 03:57] LABS: BASOPHILS % (AUTO) 0.5 % (0.0-5.0); EOSINOPHILS % (AUTO) 3.5 % (0.0-8.0); HEMATOCRIT 39.1 % (42-54); LYMPHOCYTES % (AUTO) 29.1 % (21.0-51.0); MEAN CORPUSCULAR HEMOGLOBIN 30.4 pg (27.0-33.0); MEAN CORPUSCULAR VOLUME 89.5 fL (79-99); NEUTROPHILS % (AUTO) 59.6 % (40.0-77.0); PLATELET COUNT (AUTO) 266 K/uL (130-400); RED BLOOD CELL COUNT(AUTO) 4.37 MIL/uL (4.50-6.20); RED CELL DISTRIBUTION WIDTH 12.5 % (11.0-15.5); WHITE BLOOD COUNT (AUTO) 10.5 K/uL (4.8-10.8)
[2020-03-23 04:03] LABS: CREATININE 0.8 mg/dL (0.5-1.5); POTASSIUM 3.1 mmol/L (3.5-5.1)
[2020-03-23 04:07] LABS: ALBUMIN 3.9 g/dL (3.5-5.0); BILIRUBIN,TOTAL 0.4 mg/dL (0.2-1.0); TOTAL PROTEIN, SERUM 7.1 g/dL (6.0-8.3)
== END 2020-03-23 08:59 | disposition home or self-care (01) ==
LOC: EDH 02:14
DX: F10.129 Alcohol abuse with intoxication, unspecified (principal); G92 Toxic encephalopathy; Z59.0 Homelessness; F31.9 Bipolar disorder, unspecified; F20.9 Schizophrenia, unspecified
CPT/HCPCS: 36415; 80053; 85025; 96360

== ENCOUNTER → 2020-04-03 | Emergency (ER) | payer OTHER ==
[~2020-04-03] MED LIST changes: -CLIN300C9 PO; +DiphenhydrAMINE HCL 50 MG/ML VIAL ONE; +HALOPERIDOL LACTATE 5 MG/ML VIAL ONE; -IBUP-2077 PO; +LORAZEPAM 2 MG/ML 1 ML VIAL ONE; +THIAMINE HCL 100 MG/ML 2ML VIAL ONE
[2020-04-03 21:42] LABS: BASOPHILS % (AUTO) 0.9 % (0.0-5.0); EOSINOPHILS % (AUTO) 2.4 % (0.0-8.0); HEMATOCRIT 41.6 % (42-54); LYMPHOCYTES % (AUTO) 43.2 % (21.0-51.0); MEAN CORPUSCULAR HEMOGLOBIN 30.4 pg (27.0-33.0); MEAN CORPUSCULAR HGB CONC 33.9 g/dL (32.0-36.0); MEAN CORPUSCULAR VOLUME 89.7 fL (79-99); MONOCYTES % (AUTO) 5.6 % (3.0-13.0); NEUTROPHILS % (AUTO) 47.7 % (40.0-77.0); PLATELET COUNT (AUTO) 321 K/uL (130-400); RED BLOOD CELL COUNT(AUTO) 4.64 MIL/uL (4.50-6.20); RED CELL DISTRIBUTION WIDTH 12.6 % (11.0-15.5); WHITE BLOOD COUNT (AUTO) 12.8 K/uL (4.8-10.8)
[2020-04-03 21:52] LABS: INR 0.92 (0.85-1.15); PARTIAL THROMBOPLASTIN TIME 20.6 SEC (26.3-35.5)
[2020-04-03 21:56] LABS: ALBUMIN 4.3 g/dL (3.5-5.0); BILIRUBIN,TOTAL 0.2 mg/dL (0.2-1.0); SALICYLATE 4.3 mg/dL (2.8-20.0); TOTAL PROTEIN, SERUM 7.6 g/dL (6.0-8.3)
[2020-04-03 21:58] LABS: APPEARANCE,URINE Clear (CLEAR); BILIRUBIN,URINE Negative (NEGATIVE); COLOR,URINE Yellow (YELLOW); GLUCOSE, URINE (UA) Negative (NEGATIVE); KETONES,URINE Negative (NEGATIVE); LEUKOCYTE ESTERASE ,URINE Negative (NEGATIVE); NITRATE,URINE Negative (NEGATIVE); OCCULT BLOOD,URINE Negative (NEGATIVE); PROTEIN,URINE Negative (NEGATIVE); UROBILINOGEN,URINE 0.2 mg/dL (0.2-1.0)
[2020-04-03 22:06] LABS: AMPHET/METH SCREEN,URINE NEGATIVE (NEGATIVE); BARBITURATE SCREEN, URINE NEGATIVE (NEGATIVE); BENZODIAZEPINES SCREEN,URINE NEGATIVE (NEGATIVE); CANNABINOID SCREEN,URINE NEGATIVE (NEGATIVE); COCAINE SCREEN,URINE POSITIVE (NEGATIVE); OPIATE SCREEN,URINE NEGATIVE (NEGATIVE); PHENCYCLIDINE SCREEN,URINE NEGATIVE (NEGATIVE)
== END ==
LOC: EDH 21:11
DX: E86.0 Dehydration (principal); F10.10 Alcohol abuse, uncomplicated; F20.9 Schizophrenia, unspecified; F31.9 Bipolar disorder, unspecified; F14.10 Cocaine abuse, uncomplicated
CPT/HCPCS: 36415 ×2; 70450; 71045; 80053; 80305; 81003; 82550; 84484; 85025; 85610; 85730; 93005; 96365; 96366; 96375; 99285; G0481; J1630; J2060; J3411; J1200

== ENCOUNTER 2021-10-20 16:46 | Emergency (ER) | payer OTHER ==
[~2021-10-20] VITALS: Ht 170.2 cm; Wt 63.5 kg
[2021-10-20 17:30] LABS: APPEARANCE,URINE Clear (CLEAR); BILIRUBIN,URINE Negative (NEGATIVE); COLOR,URINE Yellow (YELLOW); GLUCOSE, URINE (UA) Negative (NEGATIVE); KETONES,URINE Negative (NEGATIVE); LEUKOCYTE ESTERASE ,URINE Negative (NEGATIVE); NITRATE,URINE Negative (NEGATIVE); OCCULT BLOOD,URINE Negative (NEGATIVE); PROTEIN,URINE Negative (NEGATIVE); UROBILINOGEN,URINE 0.2 mg/dL (0.2-1.0)
[2021-10-20 17:32] LABS: BASOPHILS % (AUTO) 0.8 % (0.0-5.0); EOSINOPHILS % (AUTO) 4.9 % (0.0-8.0); HEMATOCRIT 42.5 % (42-54); MEAN CORPUSCULAR HEMOGLOBIN 31.2 pg (27.0-33.0); MEAN CORPUSCULAR HGB CONC 33.4 g/dL (32.0-36.0); MEAN CORPUSCULAR VOLUME 93.4 fL (79-99); MONOCYTES % (AUTO) 6.9 % (3.0-13.0); PLATELET COUNT (AUTO) 320 K/uL (130-400); RED BLOOD CELL COUNT(AUTO) 4.55 MIL/uL (4.50-6.20); RED CELL DISTRIBUTION WIDTH 13.4 % (11.0-15.5); WHITE BLOOD COUNT (AUTO) 9.7 K/uL (4.8-10.8)
[2021-10-20 17:44] LABS: CREATININE 0.8 mg/dL (0.5-1.5); POTASSIUM 3.8 mmol/L (3.5-5.1)
[2021-10-20 17:51] LABS: ALBUMIN 3.7 g/dL (3.5-5.0); BILIRUBIN,TOTAL 0.2 mg/dL (0.2-1.0); TOTAL PROTEIN, SERUM 7.4 g/dL (6.0-8.3)
[2021-10-20 18:01] VITALS: BP 96/56
== END 2021-10-20 18:24 | disposition home or self-care (01) ==
LOC: EDH 16:46
DX: R53.1 Weakness (principal)
CPT/HCPCS: 36415; 80053; 81003; 82948; 84484; 85025

== ENCOUNTER 2022-12-04 12:03 | Emergency (ER) | payer OTHER ==
[~2022-12-04] VITALS: Ht 170.2 cm; Wt 81.6 kg
[2022-12-04] MEDS ORDERED: LORAZEPAM 2 MG/ML 1 ML VIAL ONE (12:15)
[2022-12-04] MEDS ORDERED: LEVETIRACETAM 500 MG/5 ML SD VIAL IV ONE ×2 (12:19→13:00)
[2022-12-04] MEDS ORDERED: LORAZEPAM 2 MG/ML 1 ML VIAL IVP ONE (12:30)
[2022-12-04 13:00] LABS: BASOPHILS # (AUTO) 0.05 K/uL (0.00-0.20); BASOPHILS % (AUTO) 0.7 % (0.0-5.0); EOSINOPHILS # (AUTO) 0.05 K/uL (0.00-0.70); EOSINOPHILS % (AUTO) 0.7 % (0.0-8.0); HEMATOCRIT 41.3 % (42-54); IMMATURE GRANULOCYTE ABSOLUTE 0.03 K/uL (0-1); LYMPHOCYTES # (AUTO) 2.1 K/uL (1.0-4.8); LYMPHOCYTES % (AUTO) 26.9 % (21.0-51.0); MEAN CORPUSCULAR HEMOGLOBIN 31.7 pg (27.0-33.0); MEAN CORPUSCULAR HGB CONC 34.4 g/dL (32.0-36.0); MEAN CORPUSCULAR VOLUME 92.2 fL (79-99); MONOCYTES # (AUTO) 0.6 K/uL (0.1-1.0); MONOCYTES % (AUTO) 7.2 % (3.0-13.0); NEUTROPHILS # (AUTO) 4.9 K/uL (1.8-7.7); NEUTROPHILS % (AUTO) 64.1 % (40.0-77.0); PLATELET COUNT (AUTO) 319 K/uL (130-400); RED BLOOD CELL COUNT(AUTO) 4.48 MIL/uL (4.50-6.20); RED CELL DISTRIBUTION WIDTH 13.1 % (11.0-15.5); WHITE BLOOD COUNT (AUTO) 7.6 K/uL (4.8-10.8)
[2022-12-04 13:17] LABS: ALBUMIN 3.9 g/dL (3.5-5.0); BILIRUBIN,TOTAL 0.4 mg/dL (0.2-1.0); CREATININE 0.9 mg/dL (0.5-1.5); TOTAL PROTEIN, SERUM 7.5 g/dL (6.0-8.3)
[2022-12-04 13:20] VITALS: BP 155/99; PULSE 80; RESP 16; O2SAT 100
== END 2022-12-04 13:26 | disposition left against medical advice (07) ==
LOC: EDH 12:03
DX: R56.9 Unspecified convulsions (principal); F41.9 Anxiety disorder, unspecified; F32.A Depression, unspecified; F20.9 Schizophrenia, unspecified
CPT/HCPCS: 99284; 96365; 82550; 80053; 85025; 83605; 36415; J1953; J2060

== ENCOUNTER 2023-04-11 04:57 | Emergency (ER) | payer BC, OTHER ==
[~2023-04-11] VITALS: Ht 170.2 cm; Wt 81.6 kg
[2023-04-11 08:59] LABS: BASOPHILS # (AUTO) 0.05 K/uL (0.00-0.20); BASOPHILS % (AUTO) 0.8 % (0.0-5.0); EOSINOPHILS # (AUTO) 0.19 K/uL (0.00-0.70); EOSINOPHILS % (AUTO) 2.9 % (0.0-8.0); HEMATOCRIT 43.4 % (42-54); IMMATURE GRANULOCYTE ABSOLUTE 0.01 K/uL (0-1); LYMPHOCYTES # (AUTO) 2.8 K/uL (1.0-4.8); MEAN CORPUSCULAR HEMOGLOBIN 31.9 pg (27.0-33.0); MEAN CORPUSCULAR HGB CONC 33.6 g/dL (32.0-36.0); MEAN CORPUSCULAR VOLUME 94.8 fL (79-99); MONOCYTES # (AUTO) 0.4 K/uL (0.1-1.0); MONOCYTES % (AUTO) 6.7 % (3.0-13.0); NEUTROPHILS # (AUTO) 3.1 K/uL (1.8-7.7); NEUTROPHILS % (AUTO) 47.4 % (40.0-77.0); PLATELET COUNT (AUTO) 312 K/uL (130-400); RED BLOOD CELL COUNT(AUTO) 4.58 MIL/uL (4.50-6.20); RED CELL DISTRIBUTION WIDTH 12.6 % (11.0-15.5); WHITE BLOOD COUNT (AUTO) 6.6 K/uL (4.8-10.8)
[2023-04-11 09:15] LABS: ALANINE AMINOTRANSFERASE 87 U/L (12-78); ALBUMIN 3.7 g/dL (3.5-5.0); ALCOHOL, BLOOD < 3 mg/dL (0-10); ASPARTATE AMINOTRANSFERASE 44 U/L (10-37); BILIRUBIN,TOTAL 0.4 mg/dL (0.2-1.0); CARBON DIOXIDE 32 mmol/L (21-32); CHLORIDE 103 mmol/L (101-111); CREATINE KINASE, TOTAL 108 U/L (21-232); CREATININE 0.9 mg/dL (0.5-1.5); GLOMERULAR FILTR. RATE CALC 109 mL/min (>90); GLUCOSE,RANDOM 137 mg/dL (70-105); POTASSIUM 4.1 mmol/L (3.5-5.1); SODIUM SERUM 141 mmol/L (136-145); TOTAL PROTEIN, SERUM 7.3 g/dL (6.0-8.3); UREA NITROGEN, BLOOD 6 mg/dL (7-18)
[2023-04-11 09:44] VITALS: BP 115/57; PULSE 56; RESP 19; O2SAT 97
== END 2023-04-11 09:44 | disposition home or self-care (01) ==
LOC: EDH 04:57
DX: M62.838 Other muscle spasm (principal); F41.9 Anxiety disorder, unspecified; F31.9 Bipolar disorder, unspecified; F20.9 Schizophrenia, unspecified; Z88.6 Allergy status to analgesic agent
CPT/HCPCS: 36415; 80053; 82550; 83735; 85025

== ENCOUNTER 2023-07-23 23:39 | Emergency (ER) | payer BC ==
[~2023-07-23] VITALS: Ht 177.8 cm; Wt 86.2 kg
[2023-07-24] MEDS ORDERED: ACETAMINOPHEN 500 MG TABLET PO ONE
[2023-07-24] MEDS: HYDROCODONE/ACETAMINOPHEN 5/325 MG TAB PO ONE (00:12)
[2023-07-24] MEDS: LACTATED RINGERS 1000ML 1,000 ML IV ONE ×2 (01:39→05:07)
[2023-07-24 02:07] LABS: HEMATOCRIT 39.6 % (42-54); MEAN CORPUSCULAR HEMOGLOBIN 32.1 pg (27.0-33.0); MEAN CORPUSCULAR HGB CONC 34.8 g/dL (32.0-36.0); MEAN CORPUSCULAR VOLUME 92.1 fL (79-99); RED BLOOD CELL COUNT(AUTO) 4.3 MIL/uL (4.50-6.20); RED CELL DISTRIBUTION WIDTH 12.8 % (11.0-15.5); WHITE BLOOD COUNT (AUTO) 8.7 K/uL (4.8-10.8)
[2023-07-24 02:16] LABS: CREATININE 0.9 mg/dL (0.5-1.3); POTASSIUM 3.7 mmol/L (3.5-5.1)
[2023-07-24 02:26] LABS: ALBUMIN 4.1 g/dL (3.5-5.0); BILIRUBIN,TOTAL 0.2 mg/dL (0.2-1.0); TOTAL PROTEIN, SERUM 7.8 g/dL (6.0-8.3)
[2023-07-24] MEDS ORDERED: ACET-66 PO (03:44)
[2023-07-24 08:00] VITALS: BP 102/73; PULSE 86; RESP 17; O2SAT 100
== END 2023-07-24 08:40 | disposition home or self-care (01) ==
LOC: EDH 23:39
DX: S99.822A Other specified injuries of left foot, initial encounter (principal); M25.572 Pain in left ankle and joints of left foot; F10.129 Alcohol abuse with intoxication, unspecified; F17.200 Nicotine dependence, unspecified, uncomplicated; Z88.6 Allergy status to analgesic agent; X58.XXXA Exposure to other specified factors, initial encounter; Y93.67 Activity, basketball; Y92.89 Other specified places as the place of occurrence of the external cause; Y99.8 Other external cause status
CPT/HCPCS: 36415; 73610; 73630; 80053; 83735; 85027; 96360; 96361